=== PATIENT | female | born 1945 | race Caucasian/White ===

== ENCOUNTER 2016-10-15 20:01 | Emergency (ER) | payer MEDICARE, OTHER | END 2016-10-15 22:55 | disposition home or self-care (01) | LOC: ER 20:01 | DX: L03.032 Cellulitis of left toe (principal); I10 Essential (primary) hypertension; F17.210 Nicotine dependence, cigarettes, uncomplicated; Z79.899 Other long term (current) drug therapy | CPT/HCPCS: 10061; 87070; 87186; 96372; 99070; 99283; 99283-25 ==

== ENCOUNTER 2016-10-17 20:27 | Observation (INO) | payer MEDICARE, OTHER | END 2016-10-18 11:00 | disposition other institution (70) | LOC: ER 20:27 → MS 23:11 | PROVIDERS: ADMIT Family Medicine | DX: L03.115 Cellulitis of right lower limb (principal); E11.621 Type 2 diabetes mellitus with foot ulcer; L97.519 Non-pressure chronic ulcer of other part of right foot with unspecified severity; B95.62 Methicillin resistant Staphylococcus aureus infection as the cause of diseases classified elsewhere; I10 Essential (primary) hypertension; E66.01 Morbid (severe) obesity due to excess calories; G47.30 Sleep apnea, unspecified; N28.9 Disorder of kidney and ureter, unspecified; R06.02 Shortness of breath; R07.89 Other chest pain; F17.210 Nicotine dependence, cigarettes, uncomplicated; Z90.710 Acquired absence of both cervix and uterus; Z88.2 Allergy status to sulfonamides; Z79.4 Long term (current) use of insulin; Z79.82 Long term (current) use of aspirin; Z79.899 Other long term (current) drug therapy; Z68.38 Body mass index [BMI] 38.0-38.9, adult | CPT/HCPCS: 36415; 73630; 80048; 85025; 96361; 96365; 96366; 96367; 96375; 99070; 99284; 99284-25; G0378 ==

== ENCOUNTER 2016-10-17 20:27 | Inpatient (IN) | payer MEDICARE, OTHER ==
[~2016-10-17] VITALS: Ht 167.6 cm; Wt 106.0 kg
[2016-10-17 22:15] LABS: BASO % 0.3 % (0.1-1.2); EOS # 0.4 10_X3_uL (0.0-0.4); EOS % 3.7 % (0.7-5.8); GRAN # 7.3 10_X3_uL (1.6-6.1); GRAN % 65.6 % (34.0-71.1); HEMATOCRIT 27.7 % (34-45); LYMPH # 2.3 10_X3_uL (1.2-3.7); LYMPH % 20.9 % (19.3-51.7); MEAN PLATELET VOLUME 9.6 fl (7.5-11.5); MONO # 1.1 10_X3_uL (0.2-0.9); MONO % 9.5 % (4.7-12.5); PLATELET COUNT 301 x10_3/uL (182-369); RED BLOOD COUNT 3.01 x10_6/uL (3.9-5.2); RED CELL DISTRIBUTION WIDTH 14.5 % (11.7-14.4); WHITE BLOOD COUNT 11.1 x10_3/uL (4.0-10.0)
[2016-10-17 22:25] LABS: CALCIUM 8.6 mg/dL (8.7-10.7); CREATININE 1.8 mg/dL (0.6-1.3); POTASSIUM 4.2 mmol/L (3.5-5.1)
[2016-10-17 22:29] LABS: HEMOGLOBIN 8.6 g/dL (11.2-15.7); MEAN CORPUSCULAR HEMOGLOBIN 28.5 pg (27.0-33.0)
[2016-10-18 06:36] LABS: ALBUMIN 3.8 gm/dL (3.4-5.0); BILIRUBIN,TOTAL 0.21 mg/dL (0.0-1.0); CALCIUM 8.5 mg/dL (8.7-10.7); CREATININE 1.6 mg/dL (0.6-1.3); POTASSIUM 4.5 mmol/L (3.5-5.1); TOTAL PROTEIN 6.3 gm/dL (6.4-8.2)
[2016-10-18 06:48] LABS: BASO % 0.4 % (0.1-1.2); EOS # 0.4 10_X3_uL (0.0-0.4); GRAN % 64.1 % (34.0-71.1); HEMATOCRIT 26.9 % (34-45); HEMOGLOBIN 8.2 g/dL (11.2-15.7); LYMPH # 2.5 10_X3_uL (1.2-3.7); LYMPH % 22.6 % (19.3-51.7); MEAN CORPUSCULAR HEMOGLOBIN 28.3 pg (27.0-33.0); MEAN CORPUSCULAR HGB CONC 30.5 g/dL (32.0-36.0); MEAN CORPUSCULAR VOLUME 92.8 fL (79-95); MEAN PLATELET VOLUME 10.2 fl (7.5-11.5); MONO % 8.9 % (4.7-12.5); PLATELET COUNT 290 x10_3/uL (182-369); RED CELL DISTRIBUTION WIDTH 14.6 % (11.7-14.4)
[2016-10-18 18:32] LABS: ARTERIAL BLD GAS O2 SATURATION 69.4 % (94-98); ARTERIAL BLOOD GAS HCO3 14.8 mmol/L (22-26); ARTERIAL BLOOD GAS PCO2 62.5 mmHg (32-45)
[2016-10-18 18:46] LABS: CKMB 2.4 ng/ml (0.0-5.0)
[2016-10-18 18:47] LABS: TROP-I < 0.30 NG/ML (0.00-0.30)
[2016-10-18 19:55] LABS: ARTERIAL BLD GAS O2 SATURATION 94.1 % (94-98); ARTERIAL BLOOD GAS BASE EXCESS -10.2 mmol/L (-2.0-3.0); ARTERIAL BLOOD GAS HCO3 16.3 mmol/L (22-26); ARTERIAL BLOOD GAS PCO2 40.6 mmHg (32-45); ARTERIAL BLOOD GAS pH 7.23 (7.35-7.45)
== END 2016-10-18 20:55 | disposition short-term general hospital (02) | DRG 603 ==
LOC: ER 20:27 → MS 23:11
PROVIDERS: Emergency Medicine; ADMIT Family Medicine
DX: L03.115 Cellulitis of right lower limb (principal); E11.621 Type 2 diabetes mellitus with foot ulcer; L97.519 Non-pressure chronic ulcer of other part of right foot with unspecified severity; B95.62 Methicillin resistant Staphylococcus aureus infection as the cause of diseases classified elsewhere; I10 Essential (primary) hypertension; E66.01 Morbid (severe) obesity due to excess calories; G47.30 Sleep apnea, unspecified; N28.9 Disorder of kidney and ureter, unspecified; R06.02 Shortness of breath; R07.89 Other chest pain; F17.210 Nicotine dependence, cigarettes, uncomplicated; Z90.710 Acquired absence of both cervix and uterus; Z88.2 Allergy status to sulfonamides; Z79.4 Long term (current) use of insulin; Z79.82 Long term (current) use of aspirin; Z79.899 Other long term (current) drug therapy; Z68.38 Body mass index [BMI] 38.0-38.9, adult
CPT/HCPCS: 36415; 36600; 71010; 73630; 80048; 80053; 80061; 82550; 82553; 82803; 82962; 83036; 83880; 85025; 85379; 92950; 93005; 94002; 94660; 94664; 96365; 96375; 99070; 99284; 99284-25; J2704